=== PATIENT | female | born 1960 | race Caucasian/White ===

== ENCOUNTER 2024-10-30 06:13 | Day surgery (SDC) | payer OTHER, SELFPAY ==
[2024-10-30] VITALS (8 sets, daily range): BP systolic 102–130; BP diastolic 53–69; BMI 35.9
[2024-10-30] MEDS: NORMOSOL-R/PLASMALYTE-A 1000 IV (09:20)
[2024-10-30 09:23] LABS: Glucose - Point of Care 159 mg/dl (70-99)
[2024-10-30 10:47] LABS: Glucose - Point of Care 137 mg/dl (70-99)
== END 2024-10-30 12:33 | disposition home or self-care (01) ==
LOC: SDS 06:13
PROVIDERS: ATTENDING PHYSICIAN Specialist
DX: N20.2 Calculus of kidney with calculus of ureter (principal)
CPT/HCPCS: 52356; 74018; 76000; 82962; 93005; C1894; C2617